=== PATIENT | female | born 1955 | race Hispanic/Latino ===

== ENCOUNTER 2021-12-13 17:43 | Observation (INO) | payer OTHER ==
--- OUTSIDE RECORDS SUMMARY | 2021-12-13 17:46 | XMS REPORT | Continuity of Care Document ---
:1955 Author Organization [facility] t Address [address] [place] [address] Dr. Marcano [address] [place] [id number] Care Team Providers Name Role Phone ROSMERY Attending Clinician Unavailable SUDARSHAN Attending Clinician Unavailable ROSMERY Admitting Clinician Unavailable SUDARSHAN Admitting Clinician Unavailable Payers Payer Name Policy Type Policy Number Effective Date Expiration Date [facility] [id number] (MEDICARE REPLACEMENT/ADVANT AGE - PPO) [place] [id number] 2019 2021 [place] (PPO) 00:00:00 00:00:00 Problems Condition Condition Condition Status Onset Resolution Last Treating Co mments Source Name Details Category Date Date Treatment Clinician Date Essential Essential Problem Active 2019-10 [place] hypertensi Hypertensi 2-31 da on on [facility] Gastroesop Gastroesop Problem Active 2020-0 [facility] [place] hageal hageal 9-02 da reflux Reflux 00:00: [facility] disease Disease 00 al [facility] History of History of Problem Active 2020-0 [facility] [place] hypertensi Hypertensi 9-02 da on on 00:00: [facility] Prediabete Prediabete Problem Active [facility] s s da [facility] Allergies, Adverse Reactions, Alerts Allergy Allergy Status Severity Reaction(s) Onset Inactive Treating Comm ents Source Name Type Date Date Clinician PENICILL Allergy Active Mild Hives 2020-10 [place] INS to 0-21 da substanc 00:00: [facility] Codeine Allergy Active Moderate Hallucinatio [place] to to severe ns da substanc [facility] Social History Smoking Status Start Date Stop Date Source Never Smoker [facility] Medications Ordered Filled Start Stop Current Ordering Indication Dosage Frequency Signature Comments Components Source Medication Medication Date Date Medication? Clinician (SIG) Name Name irbesartan irbesartan No 1 Q1D irbesartan [place] 150 mg 150 mg 1-06 150 mg da tablet Take tablet Take 00:00: tablet [facility] 1 tablet 1 tablet 00 Take 1 al every day every day tablet Hea lth by oral by oral every day Outr eac route in route in by oral h the the route in Program morning. morning. the morning. aspirin 81 aspirin 81 No aspirin 81 [place] mg chewable mg chewable mg d a tablet CHEW tablet CHEW chewable [facility] 1 TABLET(S) 1 TABLET(S) tablet al EVERY DAY EVERY DAY CHEW 1 Hea lth BY ORAL BY ORAL TABLET(S) Outr eac ROUTE ROUTE EVERY DAY h DIRECTED DIRECTED BY ORAL Prog brandt FOR 30 FOR 30 ROUTE DAYS. DAYS. DIRECTED FOR 30 DAYS. atorvastati atorvastati No atorvastat [place] n 10 mg n 10 mg in 10 mg da tablet TAKE tablet TAKE tablet [facility] 1 TABLET BY 1 TABLET BY TAKE 1 al MOUTH EVERY MOUTH EVERY TABLET BY Health DAY AT DAY AT MOUTH Outreac BEDTIME BEDTIME EVERY DAY h AT BEDTIME Program esomeprazol esomeprazol No esomeprazo [place] e magnesium e magnesium le d a 20 mg 20 mg magnesium [facility] capsule,del capsule,del 20 mg al ayed ayed capsule,de Health release release layed Outreac TAKE 2 TAKE 2 release h CAPSULE(S) CAPSULE(S) TAKE 2 P rogram EVERY DAY EVERY DAY CAPSULE(S) BY ORAL BY ORAL EVERY DAY ROUTE ROUTE BY ORAL DIRECTED DIRECTED ROUTE FOR 30 FOR 30 DIRECTED DAYS. DAYS. FOR 30 DAYS. metformin metformin No metformin [place] ER 500 mg ER 500 mg ER 500 mg da tablet,exte tablet,exte tablet,ext [facility] nded nded ended al release 24 release 24 release 24 Health hr TAKE 1 hr TAKE 1 hr TAKE 1 Outreac TABLET BY TABLET BY TABLET BY h MOUTH EVERY MOUTH EVERY MOUTH Program DAY IN THE DAY IN THE EVERY DAY MORNING MORNING IN THE WITH THE WITH THE MORNING FIRST MEAL FIRST MEAL WITH THE OF THE DAY OF THE DAY FIRST MEAL OF THE DAY metoprolol metoprolol No metoprolol [place] succinate succinate succinate da ER 50 mg ER 50 mg ER 50 mg Epi scop tablet,exte tablet,exte tablet,ext al nded nded ended Health release 24 release 24 release 24 Outreac hr TAKE 1 hr TAKE 1 hr TAKE 1 h TABLET BY TABLET BY TABLET BY Program MOUTH EVERY MOUTH EVERY MOUTH DAY DAY EVERY DAY Multivitami Multivitami No Multivitam [place] n Women 50 n Women 50 in Women da Plus 1 po q Plus 1 po q 50 Plus 1 [facility] d d po q d al [facility] nitroglycer nitroglycer No nitroglyce [place] in 0.4 mg in 0.4 mg rin 0.4 mg da sublingual sublingual sublingual [facility] tablet 1 tablet 1 tablet 1 al tab tab tab Health sublingual sublingual sublingual Outreac if needed if needed if needed h for chest for chest for chest Program pain. may pain. may pain. may repeat in 5 repeat in 5 repeat in minutes if minutes if 5 minutes needed. needed. if needed. Immunizations Ordered Immunization Filled Immunization Date Status Commen ts Source Name Name COVID-19, mRNA, COVID-19, mRNA, 2021-10-04 Completed Clayton ying LNP-S, PF, 100 LNP-S, PF, 100 12:45:43 [facility] pal [facility] mcg/0.5 mL dose mcg/0.5 mL dose Outr each Program (Moderna) (Moderna) COVID-19, mRNA, COVID-19, mRNA, 2020-12-27 Completed Clayton ying LNP-S, PF, 100 LNP-S, PF, 100 13:22:43 [facility] pal [facility] mcg/0.5 mL dose mcg/0.5 mL dose Outr each Program (Moderna) (Moderna) COVID-19, mRNA, COVID-19, mRNA, 2020-11-17 Completed Clayton ying LNP-S, PF, 100 LNP-S, PF, 100 13:03:16 [facility] pal [facility] mcg/0.5 mL dose mcg/0.5 mL dose Outr each Program (Moderna) (Moderna) influenza, influenza, 2020-08-31 Completed [place] injectable, injectable, 15:57:30 [facility] alth quadrivalent, quadrivalent, Outreach Program preservative free preservative free influenza, influenza, 2019-07-28 Completed [place] injectable, injectable, 16:37:40 [facility] alth quadrivalent, quadrivalent, Outreach Program preservative free preservative free zoster live zoster live 2019-07-02 Completed [facility] 00:00:00 [facility] Outreach Progr am zoster live zoster live 2019-04-29 Completed [facility] 00:00:00 [facility] Outreach Progr am influenza, influenza, 2018-07-28 Completed [place] injectable, injectable, 00:00:00 [facility] He alth quadrivalent quadrivalent Outreach P rogram Vital Signs Vital Name Observation Time Observation Value Comments Source BMI (Body Mass 2021-10-23 00:00:00 31.1 kg/m2 [place] [facility] Index) [facility] Outreach Program BP Systolic 2021-10-23 00:00:00 138 mm[Hg] [facility] Body Weight 2021-10-23 00:00:00 2896 [oz_av] [facility] BP Diastolic 2021-10-23 00:00:00 84 mm[Hg] [facility] Height 2021-10-23 00:00:00 64 [in_i] [place] [facility] BMI (Body Mass 2021-08-18 00:00:00 31.1 kg/m2 [place] [facility] Index) [facility] Outreach Program BP Systolic 2021-08-18 00:00:00 140 mm[Hg] [place] [facility] Body Weight 2021-08-18 00:00:00 2896 [oz_av] [place] [facility] BP Diastolic 2021-08-18 00:00:00 90 mm[Hg] [place] [facility] Height 2021-08-18 00:00:00 64 [in_i] [place] [facility] BP Diastolic 2021-07-10 00:00:00 83 mm[Hg] [place] [facility] Height 2021-07-10 00:00:00 64 [in_i] [place] [facility] BMI (Body Mass 2021-07-10 00:00:00 31.3 kg/m2 [place] [facility] Index) [facility] Outreach Program BP Systolic 2021-07-10 00:00:00 137 mm[Hg] [facility] Body Weight 2021-07-10 00:00:00 2915.2 [oz_av] [facility] BP Diastolic 2021-05-16 00:00:00 77 mm[Hg] [facility] Height 2021-05-16 00:00:00 64 [in_i] [place] [facility] BP Systolic 2021-05-16 00:00:00 118 mm[Hg] [place] [facility] BP Diastolic 2020-11-16 00:00:00 80 mm[Hg] [facility] [facility] Height 2020-11-16 00:00:00 64 [in_i] [facility] [facility] BMI (Body Mass 2020-11-16 00:00:00 32.1 kg/m2 [place] [facility] Index) [facility] Outreach Program BP Systolic 2020-11-16 00:00:00 128 mm[Hg] [facility] Body Weight 2020-11-16 00:00:00 2992 [oz_av] [facility] Height 2020-10-27 00:00:00 64 [in_i] [facility] [facility] BP Diastolic 2020-06-29 00:00:00 84 mm[Hg] [facility] [facility] Height 2020-06-29 00:00:00 64 [in_i] [facility] [facility] BMI (Body Mass 2020-06-29 00:00:00 32.4 kg/m2 [place] [facility] Index) [facility] Outreach Program BP Systolic 2020-06-29 00:00:00 130 mm[Hg] [place] [facility] Body Weight 2020-06-29 00:00:00 3024 [oz_av] [place] [facility] Procedures Procedure Date / Time Performing Clinician Source Performed ELECTROCARDIOGRAM, 2020-10-27 00:00:00 [facility] COMPLETE [facility] Outreach Program CHEST X-RAY 2020-06-29 00:00:00 Cristin [facility] Egd Esophagogastrc 2019-07-06 00:00:00 [place]au [facility] Fndoplsty [facility] Outreach Program Colonoscopy 2019-07-06 00:00:00 Cristin [facility] Repair of Meniscus 2016-08-28 00:00:00 Cristin [facility] Ultrasonography Guided 1999-10-28 00:00:00 Wilma izquierdo [facility] Biopsy of Right Breast Health [facility] Program Bilateral Tubal Ligation 1995-10-28 00:00:00 Daniele agourba [facility] Anal Fissurectomy 1985-10-28 00:00:00 [facility] Plan of Care Planned Activity Planned Date Details Comments Source Future Appointment 2021-12-24 00:00:00 Cristin Comer [facility] [address]; , [place] Program [id number] Encounters Start End Encounter Admission Attending Care Care Encounter Source Date/Time Date/Time Type Type Clinicians Facility Department ID 2021-10-23 2021-10-23 Outpatient RICHY_DORY FELIZ DEABHAY [id number] [place] 12:13:00 12:13:00 _KARLI 1227 [facility] 2021-10-23 2021-10-23 Dory Natarajan [place] - [id number] [place] 00:00:00 00:00:00 Cristin Corrigan da JUTE BAG CUTTING MACHINE OPERATOR: 1700 [facility] [place] [address] h , Ph. Program 2021-10-04 2021-10-04 Outpatient RICHY_DORY FELIZ DEABHAY [id number] [place] 03:01:00 03:01:00 _ANN 1208 da [facility] 2021-10-04 2021-10-04 Rosa FELIZ [place] - [id number] M [place]of[place] 00:00:00 00:00:00 Cristin Peck MD: 1700 [facility] [address], [place], [place] Outre [address] h , Ph. Program 2021-08-18 2021-08-18 Outpatient RICHY_DORY [place]EL[place] [id number] [place] 04:06:00 04:06:00 _ANN 1022 da [facility] 2021-08-18 2021-08-18 [facility] [place] - [id number] M [facility] 00:00:00 00:00:00 Cristin Fu REVIEW SCHEDULING COORDINATOR-JUTE BAG CUTTING MACHINE OPERATOR-C: [facility]rian Epi scop 1700 [facility] - [facility] [address], [facility] [address] [facility] am , Ph. 2021-07-10 2021-07-10 Outpatient LEAHEK_DORY [place] [id number] [place] 11:50:00 11:50:00 _ANN 0913 da [facility] 2021-07-10 2021-07-10 Larisa A [facility] [place] - [id number] [place] 00:00:00 00:00:00 Cristin Corrigan JUTE BAG CUTTING MACHINE OPERATOR: 1700 [facility] - [place] [address] h , Ph. Program 2021-05-16 2021-05-16 Outpatient SHIMEK_DORY [place] [id number] [place] 09:49:00 09:49:00 _ANN 0720 da [facility] 2021-05-16 2021-05-16 Dory Natarajan [facility] [place] - [id number] [place] 00:00:00 00:00:00 Cristin Corrigan JUTE BAG CUTTING MACHINE OPERATOR: 1700 [facility] [place] [address] h , Ph. Program 2020-12-27 2020-12-27 Outpatient SHIMEK[place]ORY [place] [id number] [place] 01:52:00 01:52:00 _ANN 0302 da [facility] 2020-12-27 2020-12-27 Rosa FELIZ [place] - [id number] M [place] 00:00:00 00:00:00 Cristin Peck MD: [id number] [facility]rian Epis photocopy operator [place] [address] [facility] [address], [facility] [place] Program [phone] , Ph. 2020-12-11 2020-12-11 Outpatient LEAHEK_DORY [place] [id number] [place] 01:04:00 01:04:00 _ANN 0214 da [facility] 2020-11-17 2020-11-17 Outpatient RICHY_DORY [place] [id number] [place] 02:30:00 02:30:00 _ANN 0121 da [facility] 2020-11-17 2020-11-17 Rosa [facility] [place] - [id number] M [facility] 00:00:00 00:00:00 Cristin Peck MD: [id number] Z[facility]rian Epis photocopy operator [place] [address] [facility] [address], [facility] [place] Program [phone] , Ph. 2020-11-16 2020-11-16 Outpatient SHIMEK_DORY [place] [id number] [place] 04:44:00 04:44:00 _ANN 0120 da [facility] 2020-11-16 2020-11-16 Larisa [facility] [place] - [id number] [place] 00:00:00 00:00:00 Cristin Corrigan JUTE BAG CUTTING MACHINE OPERATOR: 1700 [facility] [place] [address] Outreac [phone] h , Ph. Program 2020-11-06 2020-11-06 Outpatient NEESE_JOSEMANUEL CARVALHOHOP [id number] [place] 01:02:00 01:02:00 0110 da [facility] 2020-10-27 2020-10-27 Outpatient NEESE_JOSEMANUEL CARVALHOHOP [id number] [place] 04:09:00 04:09:00 1231 da [facility] 2020-10-27 2020-10-27 Dory Natarajan [place] - [id number] [place] 00:00:00 00:00:00 Cristin Corrigan JUTE BAG CUTTING MACHINE OPERATOR: 1700 [facility] Baljit BLANK - [place], [place], [place] Outreac [address] h , Ph. Program 2020-08-31 2020-08-31 Outpatient NEESE_JOSEMANUEL FELIZ [id number] [place] 04:51:00 04:51:00 1104 da [facility] 2020-08-31 2020-08-31 Ana Cristina CAR[place] - [id number] M [place] 00:00:00 00:00:00 Karli Andrea, Z[facility]rian [facility] p JUTE BAG CUTTING MACHINE OPERATOR: [address] [place] F N, CLERK FUNERAL DETAIL [facility] [address] [facility] , Ph. 2020-07-06 2020-07-06 Outpatient NEESE_JOSEMANUEL FELIZ DEHOP [id number] [place] 12:39:00 12:39:00 1030 da [facility] 2020-06-29 2020-06-29 Outpatient NEESE_JOSEMANUEL CARVALHOHOP [id number] [place] 12:27:00 12:27:00 0902 da [facility] 2020-06-29 2020-06-29 Josemanuel Austin CARVAL[place] - [id number] [place] 00:00:00 00:00:00 DEAN Koch: Cristin natarajan 1700 Z[facility]ast[facility] Ep[facility] p [address], [place], [place] 3 Outreac [address] h , Ph. Program 2019-07-28 2019-07-28 Josemanuel FELIZ [place] - [id number] [place] 00:00:00 00:00:00 DEAN Koch: Cristin natarajna 1700 Zoroastrian Episco p [facility] adi Pablo, [facility] Medical ALESHIA [facility] [address], [place] [address] [place] [address] Progr am , Ph. Results Test Description Test Time Test Comments Results Result Comments Source influenza virus A + B and SARS CoV 2 (COVID-19) and RSV RNA 2021-05-16 10:18:00 panel, LOKI+probe, respiratory specimen Test Item Value Reference Range Interpretation Comme nts Sars Cov 2 (test code = Sars Cov 2) negative [facility] - Serum or Plasma 2020-10-11 00:00:00 Test Item Value Reference Range Interpretation Comments Cholesterol [Mass/volume] in Serum 154 mg/dL 100-199 or Plasma (test code = 2093-3) Triglyceride [Mass/volume] in Serum 123 mg/dL 0-149 or Plasma (test code = 2571-8) Cholesterol in HDL [Mass/volume] in 46 mg/dL >39 Serum or Plasma (test code = 2085-9) Cholesterol in VLDL [Mass/volume] 22 mg/dL 5-40 in Serum or Plasma by calculation (test code = 97583-8) Cholesterol in LDL [Mass/volume] in 86 mg/dL 0-99 Serum or Plasma by calculation (test code = 02123-1) Laboratory comment [Text] in Report crop farmers Narrative (test code = 08358-8) [facility] A1c/Hemoglobin.total in [id number] 00:00:00 Test Item Value Reference Range Interpretation Comments Hemoglobin A1c/Hemoglobin.total in 6.3 % 4.8-5.6 H Blood (test code = 4548-4) [facility] panel, [id number] 00:00:00 Test Item Value Reference Range Interpretation Comments interpretation (test code = note interpretation) pdf (test code = pdf) . [facility]
[2021-12-13 18:22] LABS: Absolute Lymphocytes (CBC) 2.6 K/uL (0.7-4.9); Hematocrit 34.8 % (36.0-45.0); Lymphocytes % 26.6 % (15.3-44.8); MPV 9.4 fL (7.6-11.3); RBC Red Blood Cell Count 3.88 M/uL (3.86-4.86)
[2021-12-13 18:23] LABS: Protime INR 0.96
[2021-12-13 18:45] LABS: ALT/SGPT 19 U/L (12-78); Albumin 3.4 g/dL (3.4-5.0); Alkaline Phosphatase 76 U/L (45-117); BUN Blood Urea Nitrogen 22 mg/dL (7-18); Bicarbonate 25 mmol/L (21-32); Bilirubin Direct < 0.1 mg/dL (0-0.2); Bilirubin Total 0.2 mg/dL (0.2-1.0); Glucose Level 109 mg/dL (74-106); NT PRO-BNP 202 pg/mL (<125); Protein, Total 7.3 g/dL (6.4-8.2); Sodium Level 138 mmol/L (136-145)
[2021-12-13 19:06] LABS: AST/SGOT 19 U/L (15-37); Magnesium 1.5 mg/dL (1.8-2.4)
--- NOTE | 2021-12-13 19:24 | RAD REPORT ---
EXAM DESCRIPTION: RAD - Chest Single View - 12/13/2021 6:57 pm CLINICAL HISTORY: CHEST PAIN COMPARISON: No comparisons FINDINGS: Lines: None. Lungs: No evidence of edema or pneumonia. Pleural: No significant pleural effusions or pneumothorax. Cardiac: The heart size is within normal limits. Bones: No acute fractures. Other: IMPRESSION: No acute cardiopulmonary disease.
[2021-12-13] MEDS ORDERED: Magnesium Sulfate 2gm IVPB 2 G/50 ML BAG IV ONE (19:28)
--- NOTE | 2021-12-13 19:49 | P.HP ---
Certification for Inpatient Patient admitted to: Observation With expected LOS: <2 Midnights Patient will require the following post-hospital care: None Practitioner: I am a practitioner with admitting privileges, knowledge of patient current condition, hospital course, and medical plan of care. Services: Services provided to patient in accordance with Admission requirements found in Title 42 Section 412.3 of the Code of Federal Regulations Patient History Date of Service: 12/13/21 Reason for admission: Chest pain History of Present Illness: 66-year-old female with history of hyperlipidemia, hypertension, borderline diabetes, GERD presents emergency department for chest pain. Patient reports that shortly after lunch she began having some sharp left-sided chest pain which continued intermittently over the course the next 2 to 4 hours. Patient denies any associated signs or symptoms, has not had similar symptoms in the past. Patient was evaluated in the emergency department her labs were significant for magnesium of 1.5 BNP 202 high-sensitivity troponin 14.3 hemoglobin 1.6 medical 34.8 EKG without significant changes ED prior wishes to admit under observation for ACS rule out - Past Medical/Surgical History -: Hypertension -: Hyperlipidemia -: Prediabetes -: Cholecystectomy -: Knee surgery -: Tubal Psychosocial/ Personal History: Patient lives at home with family - Family History Mother -: Heart disease Brother -: Heart disease - Social History Smoking Status: Never smoker Alcohol use: No CD- Drugs: No Caffeine use: Yes Place of Residence: Home Review of Systems 10-point ROS is otherwise unremarkable Cardiovascular: Chest Pain, As per HPI Physical Examination - Physical Exam General: Alert, In no apparent distress, Oriented x3 HEENT: Atraumatic, PERRLA, Mucous membr. moist/pink, EOMI, Sclerae nonicteric Neck: Supple, 2+ carotid pulse no bruit, No LAD, Without JVD or thyroid abnormality Respiratory: Clear to auscultation bilaterally, Normal air movement Cardiovascular: Regular rate/rhythm, Normal S1 S2 Gastrointestinal: Normal bowel sounds, No tenderness Musculoskeletal: No tenderness Integumentary: No rashes Neurological: Normal gait, Normal speech, Normal strength at 5/5 x4 extr, Normal tone, Normal affect Lymphatics: No axilla or inguinal lymphadenopathy - Studies Laboratory Data (last 24 hrs) 12/13/21 18:11: PT 11.0, INR 0.96 12/13/21 18:11: WBC 9.80, Hgb 11.6 L, Hct 34.8 L, Plt Count 284 12/13/21 18:11: Sodium 138, Potassium 4.0, BUN 22 H, Creatinine 1.13, Glucose 109 H, Magnesium 1.5 L, Total Bilirubin 0.2, AST 19, ALT 19, Alkaline Phosphatase 76 Assessment and Plan - Plan Assessment: Chest pain rule out ACS Hypomagnesemia Renal insufficiency Hypertension Hyperlipidemia Prediabetes GERD Plan: Chest pain rule out ACS: Trend troponin, monitor on telemetry, home medications continued including metoprolol, atorvastatin, aspirin. Cardiology consult in place. Last stress test 1.5 years ago normal per patient, has never had heart cath before. Symptoms do not sound cardiac in origin necessarily. Hypomagnesemia: Replaced in ER. Renal insufficiency: Similar to labs from previous visit, will provide gentle hydration overnight. Recheck in the morning. Hypertension: Irbesartan and metoprolol continued Hyperlipidemia: Atorvastatin continued Prediabetes: We will obtain A1c blood sugar normal in ER. Takes Metformin at home. GERD: Continue with Protonix. DVT PPX: Lovenox Code status: Full Discharge Plan: Home Plan to discharge in: 24 Hours - Advance Directives Does patient have a Living Will: No Does patient have a Durable POA for Healthcare: No - Code Status/Comfort Care Code Status Assessed: Yes (Full) Critical Care: No Time Spent Managing Pts Care (In Minutes): 55
--- NOTE | 2021-12-13 20:09 | RAD REPORT ---
EXAM DESCRIPTION: CT - Head Brain Wo Cont - 12/13/2021 7:59 pm CLINICAL HISTORY: HEADACHE COMPARISON: Head Brain Wo Cont dated 07/06/2019; Head Brain Wo Cont dated 02/12/2018No comparisons TECHNIQUE: All CT scans are performed using dose optimization technique as appropriate and may inclu de automated exposure control or mA/KV adjustment according to patient size. FINDINGS: No intracranial hemorrhage, hydrocephalus or extra-axial fluid collection.No areas of brai n edema or evidence of midline shift. The paranasal sinuses and mastoids are clear. The calvarium is intact. IMPRESSION: No acute intracranial abnormality.
--- NOTE | 2021-12-13 20:13 | EDPHYS ---
Physician Documentation [facility] Name: Shellie Marie Age: 66 yrs Sex: Female : 1955 Arrival Date: 12/13/2021 Time: 17:46 Bed 8 Private MD: ED Physician Sav Goncalves HPI: 12/13 18:56 This 66 yrs old Female presents to ER via Ambulatory with complaints of Chest kb Pain, Headache. 18:56 The patient or guardian reports chest pain that is located primarily in the anterior kb chest wall, left. Onset: today, at 14:00. The pain does not radiate. Associated signs and symptoms: Pertinent positives: headache. The chest pain is described as aching. Duration: The patient or guardian reports a single episode. Modifying factors: The symptoms are alleviated by nothing. the symptoms are aggravated by nothing. Severity of pain: At its worst the pain was moderate in the emergency department the pain is unchanged. The patient has not experienced similar symptoms in the past. The patient has not recently seen a physician. Historical: - Allergies: 18:00 Codeine; jg9 18:00 PENICILLINS; jg9 - PMHx: 18:00 Hypercholesterolemia; Hypertensive disorder; Pre Diabetes; jg9 - PSHx: 18:00 Cholecystectomy; knee sx; tubes tied; jg9 - Immunization history:: Client reports receiving the 2nd dose of the Covid vaccine, Pneumococcal vaccine is not up to date, Flu vaccine is not up to date. - Social history:: Smoking status: Patient denies any tobacco usage or history of. ROS: 18:55 Constitutional: Negative for fever, chills, and weight loss. kb 18:55 Cardiovascular: Positive for chest pain, Negative for edema, orthopnea, palpitations, paroxysmal nocturnal dyspnea. 18:55 Neuro: Positive for headache. 18:55 All other systems are negative. Exam: 18:32 Constitutional: This is a well developed, well nourished patient who is awake, alert, kb and in no acute distress. Head/Face: Normocephalic, atraumatic. ENT: Moist Mucous membranes Cardiovascular: Regular rate and rhythm with a normal S1 and S2. No gallops, murmurs, or rubs. No pulse deficits. Respiratory: Respirations even and unlabored. No increased work of breathing. Talking in full sentences Abdomen/GI: Soft, non-tender. No distention Skin: Warm, dry with normal turgor. Normal color. MS/ Extremity: Pulses equal, no cyanosis. Neurovascular intact. Full, normal range of motion. Neuro: Awake and alert, GCS 15, oriented to person, place, time, and situation. Moves all extremities. Normal gait. Psych: Awake, alert, with orientation to person, place and time. Behavior, mood, and affect are within normal limits. 18:32 ECG was reviewed by the Attending Physician. Vital Signs: 17:58 BP 161 / 81; Pulse 72; Resp 20 S; Temp 97.7(TE); Pulse Ox 100% ; Weight 79.83 kg (R); jg9 Height 5 ft. 3 in. (160.02 cm) (R); 18:14 BP 138 / 81; Pulse 95; Resp 16; Pulse Ox 98% on R/A; ic1 19:30 BP 142 / 80; Pulse 67; Resp 23 S; Pulse Ox 98% on R/A; al4 20:00 BP 129 / 73; Pulse 71; Resp 16 S; Pulse Ox 100% on R/A; al4 20:30 BP 128 / 67; Pulse 69; Resp 15 S; Pulse Ox 98% on R/A; al4 17:58 Body Mass Index 31.18 (79.83 kg, 160.02 cm) jg9 MDM: 18:05 Patient medically screened. kb 18:56 Data reviewed: vital signs, nurses notes. Data interpreted: Pulse oximetry: on room air kb is 98 %. Interpretation: normal. 19:08 Counseling: I had a detailed discussion with the patient and/or guardian regarding: the kb historical points, exam findings, and any diagnostic results supporting the discharge/admit diagnosis, lab results, radiology results, to return to the emergency department if symptoms worsen or persist or if there are any questions or concerns that arise at home. 20:10 The patient was given aspirin in the Emergency Department. kb 12/13 18:05 Order name: Basic Metabolic Panel; Complete Time: 19:07 kb 12/13 18:05 Order name: CBC with Diff; Complete Time: 18:30 kb 12/13 18:05 Order name: LFT's; Complete Time: 19:07 kb 12/13 18:05 Order name: Magnesium; Complete Time: 19:07 kb 12/13 18:05 Order name: NT PRO-BNP; Complete Time: 19:07 kb 12/13 18:05 Order name: PT-INR; Complete Time: 18:27 kb 12/13 18:05 Order name: Troponin HS; Complete Time: 19:07 kb 12/13 18:05 Order name: XRAY Chest (1 view); Complete Time: 19:26 kb 12/13 18:05 Order name: EKG; Complete Time: 18:06 kb 12/13 18:22 Order name: COVID-19 SARS RT PCR (Document "Date of Onset" if Symptomatic) kb 12/13 18:23 Order name: SARS-COV-2 RT PCR; Complete Time: 19:52 EDMS 12/13 18:26 Order name: CT Head Brain wo Cont; Complete Time: 20:09 kb 12/13 18:05 Order name: Cardiac monitoring; Complete Time: 18:14 kb 12/13 18:05 Order name: EKG - Nurse/Tech; Complete Time: 18:14 kb 12/13 18:05 Order name: IV Saline Lock; Complete Time: 18:14 kb 12/13 18:05 Order name: Labs collected and sent; Complete Time: 18:13 kb 12/13 18:05 Order name: O2 Per Protocol; Complete Time: 18:14 kb 12/13 18:05 Order name: O2 Sat Monitoring; Complete Time: 18:14 kb EC:32 Rate is 70 beats/min. Rhythm is regular. QRS [place] is Normal. NM interval is normal at kb 162 msec. QRS interval is normal at 84 msec. QT interval is normal at 380 msec. Administered Medications: 07:34 Drug: Magnesium Sulfate 2 grams Route: IVPB; Infused Over: 1 hrs; Site: left al4 antecubital; 20:47 Follow up: Response: No adverse reaction; IV Status: Completed infusion; IV Intake: [id number] 20:47 Drug: Aspirin Chewable Tablet 324 mg Route: PO; al4 Disposition Summary: 12/13/21 20:12 Hospitalization Ordered Hospitalization Status: Observation kb Provider: Tereso Bravo Location: Telemetry/MedSurg (observation)(12/13/21 20:12) kb Condition: Stable(12/13/21 20:12) kb Problem: new kb Symptoms: are unchanged kb Bed/Room Type: Standard kb Room Assignment: 215(12/13/21 20:44) eb1 Diagnosis - Chest pain, unspecified(12/13/21 20:12) kb Forms: - Medication Reconciliation Form kb - SBAR form kb Addendum: 12/15/2021 19:19 Co-signature as Attending Physician, Sav Goncalves MD I agree with the assessment and k dr plan of care. Signatures: Dispatcher [employer] EDMS Marilyn Chicas, BREAKER HAND-C BREAKER HAND-Ckb Sav Goncalves MD MD kdr Breann Queen RN RN eb1 Emmanuel Freeman al4 Susie Snell RN RN jg9 Corrections: (The following items were deleted from the chart) 12/13 20:11 20:11 Home kb kb 20:11 20:11 Stable kb kb 20:11 20:11 Chest pain, unspecified kb kb 20:44 20:12 kb eb1
--- NOTE | 2021-12-13 20:13 | ER ---
Nurse's Notes [facility] Name: Shellie Marie Age: 66 yrs Sex: Female : 1955 Arrival Date: 12/13/2021 Time: 17:46 Bed 8 Private MD: Diagnosis: Chest pain, unspecified Presentation: 12/13 17:58 Chief complaint: Patient states: Patient reports left sided chest pain and left sided jg9 head pressure that started at 200 pm today and has progressively worsened. Coronavirus screen: Vaccine status: Patient reports receiving the 2nd dose of the covid vaccine. Ebola Screen: Patient negative for fever greater than or equal to 101.5 degrees Fahrenheit, and additional compatible Ebola Virus Disease symptoms Patient denies exposure to infectious person. Patient denies travel to an Ebola-affected area in the 21 days before illness onset. Initial Sepsis Screen: Does the patient meet any 2 criteria? No. Patient's initial sepsis screen is negative. Does the patient have a suspected source of infection? No. Patient's initial sepsis screen is negative. Risk Assessment: Do you want to hurt yourself or someone else? Patient reports no desire to harm self or others. Onset of symptoms is unknown. 17:58 Method Of Arrival: Ambulatory 9 17:58 Acuity: TINA 3 jg9 Triage Assessment: 18:00 General: Appears uncomfortable, Behavior is crying. Pain: Complains of pain in chest. jg9 Cardiovascular: Reports chest pain. Historical: - Allergies: 18:00 Codeine; jg9 18:00 PENICILLINS; jg9 - PMHx: 18:00 Hypercholesterolemia; Hypertensive disorder; Pre Diabetes; jg9 - PSHx: 18:00 Cholecystectomy; knee sx; tubes tied; jg9 - Immunization history:: Client reports receiving the 2nd dose of the Covid vaccine, Pneumococcal vaccine is not up to date, Flu vaccine is not up to date. - Social history:: Smoking status: Patient denies any tobacco usage or history of. Screenin:01 Abuse screen: Denies threats or abuse. Denies injuries from another. Nutritional jg9 screening: No deficits noted. Tuberculosis screening: No symptoms or risk factors identified. Fall Risk None identified. Assessment: 18:14 General: Appears in no apparent distress. uncomfortable, Behavior is calm, cooperative. ic1 Pain: Complains of pain in chest Pain does not radiate. Pain began suddenly. Neuro: Level of Consciousness is awake, alert, obeys commands, Oriented to person, place, time, situation. Cardiovascular: Reports chest pain. Respiratory: Denies cough, shortness of breath. GI: No deficits noted. : No deficits noted. EENT: No deficits noted. Derm: No deficits noted. Musculoskeletal: No deficits noted. 19:37 General: Appears in no apparent distress. comfortable, Behavior is calm, cooperative, al4 Patient denies pain at this time. Patient states that her pain comes and goes in her chest. Patient denies difficulty breathing. Patient states she feels better since coming in and her pain has reduced. Daughter is at bedside.. Pain: Denies pain. Neuro: Level of Consciousness is awake, alert, obeys commands, Oriented to person, place, time, situation. Cardiovascular: Capillary refill < 3 seconds Patient's skin is warm and dry. Rhythm is regular. Respiratory: Airway is patent Respiratory effort is even, unlabored, Respiratory pattern is regular, symmetrical. GI: No signs and/or symptoms were reported involving the gastrointestinal system. : No signs and/or symptoms were reported regarding the genitourinary system. EENT: No signs and/or symptoms were reported regarding the EENT system. Derm: No signs and/or symptoms reported regarding the dermatologic system. Musculoskeletal: Range of motion: intact in all extremities. 20:49 Reassessment: Patient and/or family updated on plan of care and expected duration. Pain al4 level reassessed. Patient is alert, oriented x 3, equal unlabored respirations, skin warm/dry/pink. family at bedside. 21:19 Reassessment: Patient and/or family updated on plan of care and expected duration. Pain al4 level reassessed. Patient is alert, oriented x 3, equal unlabored respirations, skin warm/dry/pink. family at bedside. Vital Signs: 17:58 BP 161 / 81; Pulse 72; Resp 20 S; Temp 97.7(TE); Pulse Ox 100% ; Weight 79.83 kg (R); jg9 Height 5 ft. 3 in. (160.02 cm) (R); 18:14 BP 138 / 81; Pulse 95; Resp 16; Pulse Ox 98% on R/A; ic1 19:30 BP 142 / 80; Pulse 67; Resp 23 S; Pulse Ox 98% on R/A; al4 20:00 BP 129 / 73; Pulse 71; Resp 16 S; Pulse Ox 100% on R/A; al4 20:30 BP 128 / 67; Pulse 69; Resp 15 S; Pulse Ox 98% on R/A; al4 17:58 Body Mass Index 31.18 (79.83 kg, 160.02 cm) j9 ED Course: 17:46 Patient arrived in ED. rg4 18:00 Triage completed. jg9 18:01 Arm band placed on right wrist. jg9 18:04 Marilyn Chicas FNP-C is PHCP. kb 18:04 Sav Goncalves MD is Attending Physician. kb 18:13 Basic Metabolic Panel Sent. ic1 18:13 CBC with Diff Sent. ic1 18:13 LFT's Sent. ic1 18:14 Patient has correct armband on for positive identification. Bed in low position. Call ic1 light in reach. Side rails up X2. Adult w/ patient. threat monitoring analyst on. Pulse ox on. NIBP on. Door closed. Lights dimmed. Warm blanket given. 18:14 Magnesium Sent. ic1 18:14 NT PRO-BNP Sent. ic1 18:14 No provider procedures requiring assistance completed. Inserted saline lock: 20 gauge ic1 in left antecubital area, using aseptic technique. Blood collected. Patient maintains SpO2 saturation greater than 95% on room air. 18:57 XRAY Chest (1 view) In Process Unspecified. EDMS 19:16 COVID-19 SARS RT PCR (Document "Date of Onset" if Symptomatic) Sent. ld1 19:41 Emmanuel Freeman is Primary Nurse. al4 19:59 CT Head Brain wo Cont In Process Unspecified. EDMS 20:12 Tereso Bravo MD is Hospitalizing Provider. kb 20:56 Patient admitted, IV remains in place. al4 Administered Medications: 07:34 Drug: Magnesium Sulfate 2 grams Route: IVPB; Infused Over: 1 hrs; Site: left al4 antecubital; 20:47 Follow up: Response: No adverse reaction; IV Status: Completed infusion; IV Intake: [id number] 20:47 Drug: Aspirin Chewable Tablet 324 mg Route: PO; al4 Intake: 20:47 IV: 50ml; Total: 50ml. al4 Outcome: 20:11 Discharge ordered by . theresa 20:12 Decision to Hospitalize by Provider. kb 20:55 Admitted to Med/surg room 215, Report called to VONDA Rodriguez al4 20:55 Condition: stable 20:55 Instructed on the need for admit, Demonstrated understanding of instructions. 21:59 Patient left the ED. mw2 Signatures: Dispatcher [employer] EDMS Marilyn Chicas, ROBERTO-Bishop FURNITURE SERVICER-Shirin Pickett rg4 Brian Sadlerdelgado mw2 Rosa Silva RN RN ld1 Emmanuel Freeman al4 Susie Snell RN RN jg9 Stacey Schilling RN RN ic1 Corrections: (The following items were deleted from the chart) 19:49 19:37 General: Appears in no apparent distress. comfortable, Behavior is calm, al4 cooperative, Patient denies pain at this time. Patient states that her pain comes and goes in her chest. Patient denies difficulty breathing. Patient states she feels better since coming in and her pain has reduced. . al4 12/14 03:17 02/16 20:49 Reassessment: Patient and/or family updated on plan of care and expected al4 duration. Pain level reassessed. Patient is alert, oriented x 3, equal unlabored respirations, skin warm/dry/pink. al4 12/14 03:17 02/16 21:19 Reassessment: Patient and/or family updated on plan of care and expected al4 duration. Pain level reassessed. Patient is alert, oriented x 3, equal unlabored respirations, skin warm/dry/pink. al4
[2021-12-13] MEDS ORDERED: MORPHINE 2 MG/ML SYR IV PRN (20:33)
[2021-12-13] MEDS ORDERED: ONDANSETRON 4 MG/2 ML VIAL IV PRN (20:33)
[2021-12-13] MEDS ORDERED: SODIUM CHLORIDE 0.9% 10ML INJ IV PRN (20:33)
[2021-12-13] MEDS ORDERED: ASPIRIN 81 MG CHEWABLE TABLET ONE (20:47)
[2021-12-13] MEDS: ATORVASTATIN 10 MG TAB PO SCH (21:00)
[2021-12-13] MEDS: METOPROLOL XL 50 MG TAB PO SCH (21:00)
[2021-12-13 22:13] VITALS: BMI 31.1
[2021-12-13] MEDS ORDERED: LORAZEPAM 0.5 MG TABLET PO PRN (22:37)
[2021-12-13] MEDS: NA CHLORIDE 0.9% 1,000 ML IV SCH (22:57)
[2021-12-13] MEDS: ACETAMINOPHEN 500 MG TAB PO PRN (22:57)
[2021-12-14] MEDS: ACETAMINOPHEN 500 MG TAB PO PRN ×2 (04:42→15:19)
[2021-12-14 06:14] LABS: Absolute Lymphocytes (CBC) 1.9 K/uL (0.7-4.9); Hematocrit 32.4 % (36.0-45.0); Lymphocytes % 31.5 % (15.3-44.8); MPV 9.4 fL (7.6-11.3); RBC Red Blood Cell Count 3.61 M/uL (3.86-4.86)
--- NOTE | 2021-12-14 06:20 | P.PN ---
Date of Service: 12/14/21 Subjective: pain improved with headache no SOB, no new symptoms ROS: 10 point ROS as noted above, otherwise negative Physical exam GEN: Alert, oriented, NAD HEENT: Normal conjunctiva, sclera anicteric CV: Regular rate and rhythm, no edema Pulm: Nonlabored respirations on room air ABD: Soft, nontender, nondistended MSK: No joint tenderness Integumentary: No rashes Neuro: Normal speech, normal affect Problem List Chest pain rule out ACS Hypomagnesemia Renal insufficiency Hypertension Hyperlipidemia Prediabetes Munguia's esophagus Troponins negative, continue telemetry Symptoms most likely secondary to patient's Munguia's esophagus, feels her Nexium has not been working as well Possibility for unstable anginal symptoms Cardiology consulted, recommend stress test in a.m. dc IVF protonix ordered NPO after midnight, ok for meds except betablocker in AM for stress test Code: full Dispo: anticipate dc home tomorrow after stress - if negative Time Spent Managing Pts Care (In Minutes): 35
[2021-12-14 06:36] LABS: Bilirubin Total 0.2 mg/dL (0.2-1.0); Potassium 4.8 mmol/L (3.5-5.1); Protein, Total 6.4 g/dL (6.4-8.2); Thyroid Stimulating Hormone 2.65 uIU/mL (0.360-3.740); Troponin High Sensitivity 13.7 pg/mL (<58.9)
[2021-12-14] MEDS ORDERED: PNEUMOCOCCAL VACCINE 0.5 ML IMVAC ONE (08:00)
[2021-12-14] MEDS ORDERED: PANTOPRAZOLE 40 MG INJ IVP SCH (09:00)
[2021-12-14] MEDS ORDERED: VALSARTAN 80 MG TAB PO SCH (09:00)
[2021-12-14] MEDS: PANTOPRAZOLE 40MG TABLET PO SCH (09:00)
[2021-12-14] MEDS ORDERED: Magnesium Sulfate 2gm IVPB 2 G/50 ML BAG IV ONE (09:10)
[2021-12-14] MEDS: ENOXAPARIN 40 MG/0.4 ML SQ SCH (09:26)
[2021-12-14] MEDS: NA CHLORIDE 0.9% 1,000 ML IV SCH (09:26)
[2021-12-14] MEDS: ASPIRIN EC 81 MG TAB PO SCH (09:26)
[2021-12-14] MEDS ORDERED: PANTOPRAZOLE 40MG TABLET PO ONE (11:54)
[2021-12-14] MEDS: IRBESARTAN 300 MG PO SCH (16:13)
[2021-12-14] MEDS: METOPROLOL XL 50 MG TAB PO SCH (21:00)
--- NOTE | 2021-12-14 21:02 | CON ---
Date of Consultation: 12/14/2021 Reason For Consultation: Chest pain. History Of Present Illness: A 66-year-old female comes in with chest pain started afternoon yesterda y, lasting for about 30 minutes with no radiation, left-sided, and kept coming and going. She came i nto the emergency room, evaluated, and since late hours of this morning, she had no further chest zelda n. Past Medical History: Hypertension, dyslipidemia, prediabetes. Medications: Refer reconciliation sheet for detailed list. Past Surgical History: Cholecystectomy surgery and tubal ligation. Allergies: PENICILLIN. Family History: No premature coronary artery disease or cancer. Social History: She does not smoke or drink. Does not use any drugs. Review of Systems: All systems reviewed and they were negative except as mentioned in the HPI. Physical Examination: Vital Signs: Reviewed. Head and Neck: Pupils are equal, reactive to light. Intact eye movements. No JVD. No cervical lym phadenopathy. Neck is supple. Thyroid is not enlarged. Lungs: Clear to auscultation bilaterally. No rhonchi, rales, or crackles. No accessory muscle use. Heart: Regular rate and rhythm. No extra sounds. Abdomen: Soft, nontender. Bowel sounds positive. No organomegaly. No masses or hernia. Extremities: No edema, clubbing or cyanosis. Intact pulses. Skin: No rash. Neurologic: Alert, awake. No acute focal deficits appreciated. Lymph Nodes: No cervical or axillary lymphadenopathy. Investigations: Troponins are negative. Assessment And Recommendations: Chest pain. The chest pain coming and going, lasting for 30 minutes , is concerning for possible unstable angina. I recommend an inpatient exercise nuclear stress test and an echocardiogram, and further recommendation based on the stress test results. Meanwhile, arvind nue on aspirin and use nitroglycerin and morphine for pain control. Thank you for the consult. /LEVY Voice ID: [id number] Report ID: [id number]
[2021-12-14] MEDS: ATORVASTATIN 10 MG TAB PO SCH (21:13)
[2021-12-15 02:00] VITALS: O2SAT 99
[2021-12-15] MEDS: PANTOPRAZOLE 40MG TABLET PO SCH (06:30)
[2021-12-15 06:38] LABS: Magnesium 2.4 mg/dL (1.8-2.4); Potassium 4.9 mmol/L (3.5-5.1)
[2021-12-15] MEDS ORDERED: REGADENOSON 0.4 MG/5 ML SYR IV ONE (08:15)
[2021-12-15] MEDS: ENOXAPARIN 40 MG/0.4 ML SQ SCH (08:42)
[2021-12-15] MEDS: ASPIRIN EC 81 MG TAB PO SCH (08:42)
[2021-12-15] MEDS: ACETAMINOPHEN 500 MG TAB PO PRN (08:42)
[2021-12-15] MEDS: IRBESARTAN 300 MG PO SCH (08:42)
[2021-12-15] MEDS ORDERED: IRBESARTAN 300 MG PO SCH (09:00)
--- NOTE | 2021-12-15 12:47 | RAD REPORT ---
EXAM DESCRIPTION: NM - Rest Stress Cardiac Imaging - 12/15/2021 12:09 pm CLINICAL HISTORY: Chest pain. COMPARISON: None. TECHNIQUE: The patient was administered 10.2 mCi of Tc 99m Sestamibi prior to resting SPECT imaging of the heart. The patient was then administered 31.8 mCi of Tc 99m Sestamibi following exercise or ph armacologic stress. Multiplanar SPECT images were reviewed. FINDINGS: There is uniformity of radiotracer uptake involving the entire left ventricular myocardiu m on rest and stress images. The left ventricular ejection fraction equals 82% IMPRESSION: Negative for a myocardial perfusion defect
[2021-12-15 12:53] VITALS: BP 141/69; TEMP 97.6
--- NOTE | 2021-12-15 13:38 | P.DS ---
Admission Date: 12/13/21 Discharge Date: 12/15/21 Disposition: ROUTINE DISCHARGE Discharge Condition: GOOD Reason for Admission: Chest pain Consultations: Cardiology Procedures: Problem List Chest pain Munguia's esophagus SVT, new diagnosis Hypomagnesemia Hypertension Hyperlipidemia Prediabetes Brief History of Present Illness: 66-year-old female with history of hyperlipidemia, hypertension, borderline diabetes, GERD presents emergency department for chest pain. Patient reports that shortly after lunch she began having some sharp left-sided chest pain which continued intermittently over the course the next 2 to 4 hours. Patient denies any associated signs or symptoms, has not had similar symptoms in the past. Patient was evaluated in the emergency department her labs were significant for magnesium of 1.5 BNP 202 high-sensitivity troponin 14.3 hemoglobin 1.6 medical 34.8 EKG without significant changes ED prior wishes to admit under observation for ACS rule out Hospital Course: Patient's chest pain was evaluated by EKG, cardiac troponins, echocardiogram, and cardiac stress test, all which were normal. While undergoing an echocardiogram, she was noted with briefly go into SVT for few seconds. At that time she reported having similar symptoms that brought her to the hospital. This was reviewed with cardiology, recommended increasing metoprolol to 50 mg twice daily, continue irbesartan. Intermittent tachyarrhythmia/SVT may be the cause of her symptoms. Patient is not working as well. That limits may also be contributing / cause of her pain. nexium changed to pantoprazole 40mg BID for at least 1 month, then can possibly decrease to daily. Follow up with PCP. Recommend EGD in near future - follow up with GI. Follow-up with cardiology, can consider outpatient stress te/cause of her painst, possible heart monitor/event monitor. Vital Signs/Physical Exam: Physical exam GEN: Alert, oriented, NAD HEENT: Normal conjunctiva, sclera anicteric CV: Regular rate and rhythm, no edema Pulm: Nonlabored respirations on room air ABD: Soft, nontender, nondistended MSK: No joint tenderness Integumentary: No rashes Neuro: Normal speech, normal affect Temp Pulse Resp BP Pulse Ox 97.6 F 81 18 141/69 H 98 12/15/21 12:00 12/15/21 12:00 12/15/21 12:00 12/15/21 12:12/15/21 12:00 Laboratory Data at Discharge: WBC 6.20 K/uL (4.3-10.9) D 12/14/21 05:44 Hgb 11.0 g/dL (12.0-15.0) L 12/14/21 05:44 Hct 32.4 % (36.0-45.0) L 12/14/21 05:44 Plt Count 240 K/uL (152-406) 12/14/21 05:44 PT 11.0 SECONDS (9.5-12.5) 12/13/21 18:11 INR 0.96 12/13/21 18:11 Sodium 140 mmol/L (136-145) 12/15/21 05:59 Potassium 4.9 mmol/L (3.5-5.1) 12/15/21 05:59 BUN 17 mg/dL (7-18) 12/15/21 05:59 Creatinine 1.02 mg/dL (0.55-1.3) 12/15/21 05:59 Glucose 108 mg/dL (74-106) H 12/15/21 05:59 Magnesium 2.4 mg/dL (1.8-2.4) D 12/15/21 05:59 Total Bilirubin 0.2 mg/dL (0.2-1.0) 12/14/21 05:44 AST 14 U/L (15-37) L 12/14/21 05:44 ALT 15 U/L (12-78) 12/14/21 05:44 Alkaline Phosphatase 57 U/L (45-117) 12/14/21 05:44 Home Medications: Atorvastatin Calcium [Lipitor*] 10 mg PO DAILY 12/13/21 Irbesartan 300 mg PO DAILY 12/13/21 LORazepam [Ativan*] 0.5 mg PO PRN 12/13/21 Metformin ER [Glucophage ER*] 500 mg PO DAILY 12/13/21 Metoprolol Succinate 50 mg PO BID 30 Days #60 tab 12/15/21 Pantoprazole [Protonix Tab*] 40 mg PO BID 30 Days #60 tab 12/15/21 New Medications: Metoprolol Succinate 50 mg PO BID 30 Days #60 tab Pantoprazole [Protonix Tab*] 40 mg PO BID 30 Days #60 tab Physician Discharge Instructions: Patient's chest pain was evaluated by EKG, cardiac troponins, echocardiogram, and cardiac stress test, all which were normal. While undergoing an echocardiogram, she was noted with briefly go into SVT for few seconds. At that time she reported having similar symptoms that brought her to the hospital. This was reviewed with cardiology, recommended increasing metoprolol to 50 mg twice daily, continue irbesartan. Intermittent tachyarrhythmia/SVT may be the cause of her symptoms. Patient is not working as well. That limits may also be contributing / cause of her pain. nexium changed to pantoprazole 40mg BID for at least 1 month, then can possibly decrease to daily. Follow up with PCP. Recommend EGD in near future - follow up with GI. Follow-up with cardiology, can consider outpatient stress test/cause of her pain, possible heart monitor/event monitor. Diet: AHA Activity: Ad surya Followup: Ayden Brooks MD [ACTIVE - CAN ADMIT] - NONE,NONE [Primary Care Provider] - Time spent managing pt's care (in minutes): 45
--- NOTE | 2021-12-15 13:52 | ECHO ---
HEIGHT: 5 ft 3 in WEIGHT: 176 lb 0 oz DATE OF STUDY: 12/15/[address]: Tereso Bravo MD 2-DIMENSIONAL: YES M.MODE: YES DOPPLER: YES COLOR FLOW: YES TDS: NO PORTABLE: NO DEFINITY: NO BUBBLE STUDY: NO DIAGNOSIS: CHEST PAIN CARDIAC HISTORY: CATHERIZATION: SURGERY: PROSTHETIC VALVE: PACEMAKER: MEASUREMENTS (cm) DIASTOLIC (NORMALS) SYSTOLIC (NORMALS) IVSd 0.8 (0.6-1.2) LA Diam 3.1 (1.9-4.0) LVEF 78% LVIDd 4.3 (3.5-5.7) LVIDs 2.3 (2.0-3.5) %FS 47% LVPWd 0.9 (0.6-1.2) Ao Diam 2.1 (2.0-3.7) 2 DIMENSIONAL ASSESSMENT: RIGHT ATRIUM: NORMAL LEFT ATRIUM: NORMAL RIGHT VENTRICLE: NORMAL LEFT VENTRICLE: NORMAL TRICUSPID VALVE: NORMAL MITRAL VALVE: NORMAL PULMONIC VALVE: NORMAL AORTIC VALVE: NORMAL PERICARDIAL EFFUSION: NONE AORTIC ROOT: NORMAL LEFT VENTRICULAR WALL MOTION: NORMAL DOPPLER/COLOR FLOW: NORMAL COMMENTS: NORMAL 2D ECHOCARDIOGRAM WITH DOPPLER. NO WALL MOTION ABNORMALITY. NO MITRAL VALVE PROLAPSE. NO EFFUSION. TECHNOLOGIST: Michi OCHOA
--- NOTE | 2021-12-15 13:56 | TREADPHA ---
DX: CHEST PAIN Date of Study: 12/15/2021 Ht: 5' 3 " Wt: 176 lb 0 oz Consulting Physician: CLAUDE MEDICATIONS: ASPIRIN, LIPITOR, LOVENOX, ATIVAN, TOPROC, METFORMIN, IRBESARTAN HISTORY: 66 YEAR OLD FEMALE WITH COMPLAINTS OF CHEST PAIN AND LIGHTHEADEDNESS. MEDICAL HISTORY OF HYPERTENSION, HIGH CHOLESTEROL, OCCASIONAL DRINKER AND NON SMOKER. PHYSICIAL EXAMINATION: RESTING B.P.: 156/81 RESTING H.R.: 87 RESTING EKG: NORMAL PROTOCOL: LEXISCAN EXERCISE TIME: 3:30 B.P. AT PEAK STRESS: 168/83 IMPRESSION: LEXISCAN INJECTED, CARDIOLITE INJECTED PER PROTOCOL. SEE NUCLEAR MEDICINE REPORT. NO CHEST PAIN REPORTED. NO VENTRICULAR OR SUPRAVENTRICULAR TACHYCARDIA NOTED. NO PREMATURE VENTRICULAR COMPLEXES NOTED.
--- NOTE | 2021-12-15 16:00 | PN ---
Date of Progress Note: 12/15/2021 Ms. Marie is a 66 years old with a progress note on 12/15/2021. I stopped by and saw Ms. Marie this morning. She is pain-free. She was seen by Dr. Motley yesterday for atypical chest pain. An echocardiogram and Lexiscan are still pending. Overnight, her vital signs were stable. She was afeb rile. Telemetry is normal. Had some chest pain last night, but not since. We will await the result s of her echo and stress test before making further decision. In the past, she has seen Dr. Merline natarajan nd has had a normal echo and a normal stress test hence. If her echo and stress test are normal, she can go home and follow up with us as an outpatient. MICHELE/LEVY Voice ID: [id number] Report ID: [id number]
== END 2021-12-15 02:40 | disposition home or self-care (01) ==
LOC: ER 17:43 → ERHOLD 20:04 → 2ND 20:48
PROVIDERS: ADMIT Hospitalist; ATTEND Hospitalist
DX: R07.89 Other chest pain (principal); I47.1 Supraventricular tachycardia; K22.70 Barrett's esophagus without dysplasia; I10 Essential (primary) hypertension; E83.42 Hypomagnesemia; E78.5 Hyperlipidemia, unspecified; R73.03 Prediabetes; K21.9 Gastro-esophageal reflux disease without esophagitis; N28.9 Disorder of kidney and ureter, unspecified; Z20.822 Contact with and (suspected) exposure to COVID-19; Z88.0 Allergy status to penicillin; Z90.49 Acquired absence of other specified parts of digestive tract; Z98.51 Tubal ligation status; Z82.49 Family history of ischemic heart disease and other diseases of the circulatory system
CPT/HCPCS: 96365; 93005; 93017; 93306; 85025 ×2; 80048 ×2; 36415 ×2; 83735 ×2; 85610; 80076; 84443; 83036; 84484 ×3; 84439; 80053; 83880; 70450; 71045; 78452; 99285; 96366; U0003; J1650 ×2; J3475 ×2; J2785; J7030 ×2; A9500; G0378 ×4